=== PATIENT | female | born 2000 | race Two or more races ===

== ENCOUNTER 2023-10-11 04:01 | Emergency (ER) | payer OTHER ==
[~2023-10-11] VITALS: Ht 149.9 cm; Wt 54.4 kg
[2023-10-11] MEDS ORDERED: SYNTHROID75 MCG PO (04:17)
[2023-10-11] MEDS ORDERED: PROAIR RESPICL90 MCG (04:17)
[2023-10-11] MEDS ORDERED: ALLERGY RELIEF10 M3 PO (04:17)
[2023-10-11 06:59] LABS: HEMATOCRIT 38.8 % (36.0-45.00); HEMOGLOBIN 12.8 g/dL (12.0-15.00); MEAN CELL VOLUME 93.7 fL (80.00-100.00); MEAN CORPUSCULAR HGB CONC 33.1 g/dl (32.0-36.0); PLATELET COUNT 306 K/uL (150-450); RED BLOOD COUNT 4.14 M/uL (4.00-6.00); RED CELL DISTRIBUTION WIDTH 12.8 % (11.5-14.5)
[2023-10-11 07:34] LABS: CALCIUM 9.4 mg/dL (8.5-10.1); CREATININE SERUM 0.55 mg/dL (0.55-1.02); GFR 139.53; POTASSIUM 4.47 mEq/L (3.5-5.1)
[2023-10-11 07:35] LABS: TSH 0.534 uIU/mL (0.358-3.74)
== END 2023-10-11 07:55 ==
LOC: ER 04:02
PROVIDERS: General Practice
DX: R53.81 Other malaise (principal); R53.1 Weakness; E03.8 Other specified hypothyroidism

== ENCOUNTER 2024-10-29 17:26 | Emergency (ER) | payer OTHER ==
[~2024-10-29] VITALS: Ht 149.9 cm; Wt 54.4 kg
[~2024-10-29 17:26] MED LIST: ALLERGY RELIEF10 M3 PO; PROAIR RESPICL90 MCG; SYNTHROID75 MCG PO
[2024-10-29] MEDS ORDERED: ORPHENADRINE CITRATE 30 MG/ML AMPUL IM STA (18:53)
[2024-10-29] MEDS ORDERED: KETOROLAC TROMETHAMINE 30 MG VIAL IM STA (18:53)
== END 2024-10-29 19:21 | disposition home or self-care (01) ==
LOC: ER 17:29
DX: R51.9 Headache, unspecified (principal); Z91.018 Allergy to other foods

== ENCOUNTER 2025-03-22 17:43 | Emergency (ER) | payer OTHER ==
[~2025-03-22] VITALS: Ht 149.9 cm; Wt 59.0 kg
[2025-03-22] MEDS ORDERED: FAMOTIDINE/PF 20 MG/2 ML VIAL IV ONE (20:00)
[2025-03-22] MEDS ORDERED: DIPHENHYDRAMINE HCL 50 MG/ML VIAL 1ML IM ONE (20:00)
[2025-03-22] MEDS ORDERED: METHYLPREDNISOLONE SOD SUCC 125 MG VIAL IV ONE (20:00)
[2025-03-22] MEDS ORDERED: DIPHENHYDRAMINE HCL 50 MG/ML VIAL 1ML ONE (20:47)
[2025-03-22] MEDS ORDERED: METHYLPREDNISOLONE SOD SUCC 125 MG VIAL ONE (20:48)
[2025-03-22] MEDS ORDERED: FAMOTIDINE/PF 20 MG/2 ML VIAL ONE (20:48)
[2025-03-22 21:41] LABS: BASO % 0.3 % (0.1-1.2); EOS # 0.08 (0.04-0.54); EOS % 1.1 % (0.7-7.0); LYMPH # 2.41 (1.18-3.74); LYMPH % 34.5 % (19.3-53.1); MEAN PLATELET VOLUME 10.50 fl (9.4-12.4); MONO # 0.43 (0.24-0.82); MONO % 6.2 % (4.7-12.5); NEUT # 4.03 (1.56-6.13); NEUT % 57.8 % (34.0-71.1); RED CELL DISTRIBUTION WIDTH 12.5 % (11.6-14.4)
[2025-03-22] MEDS ORDERED: BENADRYL ALLERG50 MG PO (22:03)
[2025-03-22] MEDS ORDERED: MEDROLPACK PO (22:03)
[2025-03-22] MEDS ORDERED: PEPCID AC20 MG PO (22:03)
== END 2025-03-22 23:16 ==
LOC: ER 18:01
PROVIDERS: Emergency Medicine
DX: L50.9 Urticaria, unspecified (principal); R21 Rash and other nonspecific skin eruption; Z91.018 Allergy to other foods